=== PATIENT | female | born 1955 | race Caucasian/White ===

== ENCOUNTER → 2016-11-16 | Outpatient (CLI) | payer BC ==
[~2016-11-16] MED LIST: MECL1TAB42 PO; ONDA4TAB10 SL
--- NOTE | 2016-11-17 07:42 | MAMMOGRAPHY REPORT ---
BILATERAL DIGITAL SCREENING MAMMOGRAM TOMOSYNTHESIS WITH CAD: 11/16/2016 CLINICAL HISTORY: Routine screening. Patient has no complaints. TECHNIQUE: Breast tomosynthesis in addition to standard 2D mammography was performed. Current study was also evaluated with a Computer Aided Detection (CAD) system. COMPARISON: Comparison is made to exams dated: 11/10/2015 mammogram, 11/04/2014 mammogram, 10/24/2013 mammogram, 10/01/2012 mammogram - [facility], 03/26/2009, and 08/21/2008. BREAST COMPOSITION: The tissue of both breasts is heterogeneously dense, which may obscure small ma sses. FINDINGS: No suspicious masses, calcifications, or areas of architectural distortion are noted in e ither breast. There has been no significant interval change compared to prior exams. Focal asymmetr y in the left medial breast at approximately 9:00 is stable compared to multiple prior exams includi ng the 2007 exam. Bilateral benign-appearing calcifications are stable. IMPRESSION: ACR BI-RADS CATEGORY 2: BENIGN There is no mammographic evidence of malignancy. A 1 year screening mammogram is recommended. The p atient will receive written notification of the results. Approximately 10% of breast cancers are not detected with mammography. A negative mammographic repor t should not delay biopsy if a clinically suggestive mass is present. Cecy May M.D. ah/:11/16/2016 15:47:13 Overlay Plastician: Radha W[place])(M), [facility] letter sent: Normal 1/2 BI-RADS Code: ACR BI-RADS Category 2: Benign
== END | disposition home or self-care (01) ==
LOC: C.MAMM 15:14
PROVIDERS: ATTEND Obstetrics & Gynecology
DX: Z12.31 Encounter for screening mammogram for malignant neoplasm of breast (principal)

== ENCOUNTER 2017-02-17 07:12 | Emergency (ER) | payer BC ==
[~2017-02-17] VITALS: Ht 162.6 cm; Wt 55.7 kg
[2017-02-17 07:17] VITALS: TEMP 36.4; Ht 162.6 cm; Wt 55.7 kg
[2017-02-17] MEDS ORDERED: DIAZEPAM INJ 5 MG/ML 2 ML CARP IV STA (07:26)
[2017-02-17] MEDS ORDERED: SODIUM CHLORIDE 0.9% 1000ML 1,000 ML IV STA (07:26)
[2017-02-17] MEDS ORDERED: ONDANSETRON INJ 2 MG/ML 2 ML VIAL IV STA (07:26)
--- NOTE | 2017-02-17 07:36 | EMERGENCY ROOM VISIT NOTE ---
History First contact with patient: 07:19 Chief Complaint: DIZZY Stated Complaint: DIZZY,VERTIGO,NAUSEAUS History of Present Illness The patient is a 61 year old female who presents to the Emergency Room with complaints of dizziness. The patient states that yesterday morning she woke up and noticed his this. She describes it as a spinning sensation. She reports associated nausea. She states she has also had some head pressure but states it does not feel like a headache. The patient had a history of Mnire's in the . She had vertigo at that time. She states this feels different today. She denies any hearing loss or hearing decreased. This feels different than headaches she has had in the past. She denies any recent illness, earache , sore throat, cough, fever. She denies any pain in her chest or trouble breathing. She denies any abdominal pain, vomiting. She denies any numbness, tingling, weakness in the upper or lower extremities. Review of Systems A 10 system review of systems was completed with positives and pertinent negatives listed in the HPI. Past Medical/Surgical History Medical Problems: (1) Meniere's disease Social History Smoking Status: Never Smoker Housing Status: lives with family Current/Historical Medications Scheduled Ondasetron Odt (Zofran Odt), 4 MG SL Q6H Scheduled PRN Meclizine Hcl (Meclizine Hcl), 1 TAB PO TID PRN for Dizziness or Vertigo Allergies Coded Allergies: No Known Allergies (Unverified , 06/06/10) Physical Exam Vital Signs Date Time Temp Pulse Resp B/P (MAP) Pulse Ox O2 Delivery O2 Flow Rate FiO2 02/17/17 10:27 50 16 124/52 100 02/17/17 08:46 48 17 129/77 98 Room Air 57 145/69 53 127/62 02/17/17 08:10 45 18 123/61 96 Room Air 02/17/17 07:44 57 02/17/17 07:17 36.4 53 18 145/76 99 Room Air Physical Exam VITALS: Vitals are noted on the nurse's note and reviewed by myself. Vital signs stable. The patient is afebrile. She is not tachycardic, tachypneic or hypoxic. She is not hypotensive. GENERAL: This is a 61-year-old female, in no acute distress, nondiaphoretic, well-developed well-nourished. SKIN: The skin was without rashes, erythema, edema, or bruising. There is no tenting of the skin. Capillary reflex less than 2 seconds. HEAD: Normocephalic atraumatic. EARS: External auditory canals clear, tympanic membranes pearly nunez without erythema or effusion bilaterally. EYES: Pupils equal round and reactive to light and accommodation. Conjunctivae without injection, sclerae without icterus. Extraocular movements intact. There is no nystagmus. NOSE: Patent, turbinates without inflammation or discharge. MOUTH: Mucous membranes moist. Tonsils are not enlarged. Pharynx without erythema or exudate. Uvula midline. Airway patent. Tongue does not deviate. NECK: Supple without nuchal rigidity. Cervical spine is nontender. No JVD. HEART: Regular rate and rhythm without murmurs gallops or rubs. LUNGS: Clear to auscultation bilaterally without wheezes, rales or rhonchi. No retractions or accessory muscle use. ABDOMEN: Positive bowel sounds x 4. Soft, nontender, without masses or organomegaly. MUSCULOSKELETAL: No muscle atrophy, erythema, or edema noted. Full range of motion in all extremities. Strength 5/5 throughout. NEURO: Patient was alert and oriented to person place and time. Cranial nerves II through XII grossly intact. Negative pronator drift. Cacezn-rg-pyfb intact. Tyam-ok-yheb testing is intact. No focal neurological deficits. Medical Decision & Procedures ER Provider Diagnostic Interpretation: [~ rep ct add3]] CHEST ONE VIEW PORTABLE CLINICAL HISTORY: dizziness COMPARISON STUDY: No previous studies for comparison. FINDINGS: The cardiac and mediastinal contours are normal. There is no evidence of focal pulmonary consolidation. There is no evidence of failure. No pleural effusions are visualized.[ IMPRESSION: No active disease in the chest. CT HEAD WITHOUT CONTRAST (CT) CLINICAL HISTORY: dizziness NAUSEA COMPARISON STUDY: No previous studies for comparison. TECHNIQUE: Axial CT of the brain is performed from the vertex to the skull base. IV contrast was not administered for this examination. CT DOSE: 537.48 mGy.cm FINDINGS: No intra or extra-axial mass lesions are visualized. There is no CT evidence of acute cortical infarction. There is no evidence of midline shift. There is no acute hemorrhage. No calvarial fractures are visualized. There is no evidence of pathologic ventricular dilatation. There is no evidence of acute sinusitis IMPRESSION: No acute intracranial findings Laboratory Results 02/17/17 08:00 Red Blood Count 4.86, Mean Corpuscular Volume 91.6, Mean Corpuscular Hemoglobin 30.5, Mean Corpuscular Hemoglobin Concent 33.3, Mean Platelet Volume 9.7, Neutrophils (%) (Auto) 58.9, Lymphocytes (%) (Auto) 31.9, Monocytes (%) (Auto) 6.6, Eosinophils (%) (Auto) 2.0, Basophils (%) (Auto) 0.4, Neutrophils # (Auto) 2.67, Lymphocytes # (Auto) 1.45, Monocytes # (Auto) 0.30, Eosinophils # (Auto) 0.09, Basophils # (Auto) 0.02 02/17/17 08:00 Test 02/17/17 08:00 02/17/17 08:19 White Blood Count 4.54 K/uL (4.8-10.8) Red Blood Count 4.86 M/uL (4.2-5.4) Hemoglobin 14.8 g/dL (12.0-16.0) Hematocrit 44.5 % (37-47) Mean Corpuscular Volume 91.6 fL (80-100) Mean Corpuscular Hemoglobin 30.5 pg (25-34) Mean Corpuscular Hemoglobin Concent 33.3 g/dl (32-36) Platelet Count 207 K/uL (130-400) Mean Platelet Volume 9.7 fL (7.4-10.4) Neutrophils (%) (Auto) 58.9 % Lymphocytes (%) (Auto) 31.9 % Monocytes (%) (Auto) 6.6 % Eosinophils (%) (Auto) 2.0 % Basophils (%) (Auto) 0.4 % Neutrophils # (Auto) 2.67 K/uL (1.4-6.5) Lymphocytes # (Auto) 1.45 K/uL (1.2-3.4) Monocytes # (Auto) 0.30 K/uL (0.11-0.59) Eosinophils # (Auto) 0.09 K/uL (0-0.5) Basophils # (Auto) 0.02 K/uL (0-0.2) RDW Standard Deviation 41.8 fL (36.4-46.3) RDW Coefficient of Variation 12.4 % (11.5-14.5) Immature Granulocyte % (Auto) 0.2 % Immature Granulocyte # (Auto) 0.01 K/uL (0.00-0.02) Prothrombin Time 10.7 SECONDS (9.0-12.0) Prothromb Time International Ratio 1.0 (0.9-1.1) Activated Partial Thromboplast Time 25.6 SECONDS (21.0-31.0) Partial Thromboplastin Ratio 1.0 Anion Gap 7.0 mmol/L (3-11) Est Creatinine Clear Calc Drug Dose 55.5 ml/min Estimated GFR () 77.9 Estimated GFR (Non- 67.2 BUN/Creatinine Ratio 12.4 (10-20) Calcium Level 9.7 mg/dl (8.5-10.1) Magnesium Level 2.1 mg/dl (1.8-2.4) Total Bilirubin 1.1 mg/dl (0.2-1) Aspartate Amino Transf (AST/SGOT) 18 U/L (15-37) Alanine Aminotransferase (ALT/SGPT) 22 U/L (12-78) Alkaline Phosphatase 66 U/L (45-117) Troponin I < 0.015 ng/ml (0-0.045) Total Protein 7.4 gm/dl (6.4-8.2) Albumin 4.2 gm/dl (3.4-5.0) Globulin 3.2 gm/dl (2.5-4.0) Albumin/Globulin Ratio 1.3 (0.9-2) Thyroid Stimulating Hormone (TSH) 1.070 uIu/ml (0.300-4.500) Urine Color YELLOW Urine Appearance CLEAR (CLEAR) Urine pH 6.5 (4.5-7.5) Urine Specific [place] 1.008 (1.000-1.030) Urine Protein NEG (NEG) Urine Glucose (UA) NEG (NEG) Urine Ketones NEG (NEG) Urine Occult Blood NEG (NEG) Urine Nitrite NEG (NEG) Urine Bilirubin NEG (NEG) Urine Urobilinogen NEG (NEG) Urine Leukocyte Esterase MODERATE (NEG) Urine WBC (Auto) 1-5 /hpf (0-5) Urine RBC (Auto) 0-4 /hpf (0-4) Urine Hyaline Casts (Auto) 0 /lpf (0-5) Urine Epithelial Cells (Auto) 10-20 /lpf (0-5) Urine Bacteria (Auto) NEG (NEG) Medications Administered Medications (Trade) Dose Ordered Sig/Trixie Route Start Time Stop Time Status Last Admin Dose Admin Sodium Chloride 1,000 ml @ 999 mls/hr Q1H1M STAT IV 02/17/17 07:26 02/17/17 08:26 DC 02/17/17 07:54 999 MLS/HR Ondansetron HCl (Zofran Inj) 4 mg NOW STAT IV 02/17/17 07:26 02/17/17 07:28 DC 02/17/17 07:54 4 MG Diazepam (Valium Inj) 2.5 mg NOW STAT IV 02/17/17 07:26 02/17/17 07:28 DC 02/17/17 07:55 2.5 MG Meclizine HCl (Antivert Tab) 25 mg NOW STAT PO 02/17/17 09:13 02/17/17 09:14 DC 02/17/17 09:24 25 MG Procedure The patient was monitored on a firebreak cutter. She maintained a sinus bradycardia without ectopy. On ambulatory trial, the patient did have appropriate heart rate response with heart rate around 70 bpm. ECG Indication: nausea Rate (beats per minute): 46 Rhythm: sinus bradycardia Findings: no acute ischemic change Comparison ECG Date: no prior available ED Course The patient was seen and examined. Previous visits were reviewed. She does not have a fever or leukocytosis. She does not have any significant electrolyte abnormality. TSH is within normal limits. Troponin is not elevated. CT scan of the brain does not reveal any acute abnormality Chest x-ray was negative The patient was hydrated with normal saline She was given 4 mg IV Zofran and 2.5 mg IV Valium with mild improvement in her symptoms She was given 25 mg oral meclizine and was feeling well enough to be discharged home The patient presents to the emergency department with symptoms of vertigo. The patient has a normal neurologic examination. CT of the brain does not reveal any abnormality. The patient was feeling better after Valium, fluids, Zofran and meclizine. The patient should follow with her family doctor next week. The patient was noted to have a sinus bradycardia. She states that she is a very active and often has a low heart rate. When the patient was ambulated, she had an appropriate response of her heart rate. She should return to the ER with any worsening symptoms. The case was discussed with Dr. Christine who agrees with the assessment and treatment plan Medical Decision DIFFERENTIAL DIAGNOSIS: Aortic dissection, myocarditis, pericarditis, cervical disc disease, costochondritis, herpes zoster, rib fracture, pleuritis, pneumonia , pulmonary embolus, tension pneumothorax, anxiety disorder, somatoform disorder , choledocholithiasis, status, esophagitis, esophageal spasm, esophageal reflux , esophageal rupture, pancreatitis, peptic ulcer disease, cardiac ischemia, ST elevation PA, acute coronary syndrome, arrhythmia, coronary artery vasospasm. vavular heart disease, coronary artery disease, TIA, CVA, intracranial bleeding , vertigo, among others. Impression Primary Impression: Vertigo Additional Impression: Dizziness Departure Information Dispostion Home / Self-Care Condition GOOD Prescriptions Ondasetron Odt (ZOFRAN ODT) 4 Mg Tab 4 MG SL Q6H for Nausea, #20 TAB Prov: Therese Hernandez PA-C 02/17/17 Meclizine Hcl (MECLIZINE HCL) 25 Mg Tab 1 TAB PO TID Y for Dizziness or Vertigo for 10 Days, #30 TAB Prov: Therese Hernandez PA-C 02/17/17 Referrals Alden Marin M.D.(CINTIA) (PCP) Patient Instructions ED [facility] Vertigo, [facility] Additional Instructions Meclizine as prescribed, as needed for dizziness Zofran as prescribed, as needed for nausea and vomiting Contact your family doctor on Sunday to schedule a follow-up appointment next week for recheck Return with any worsening symptoms, numbness, tingling, weakness in the extremities, chest pain, trouble breathing, headache Problem Qualifiers
--- NOTE | 2017-02-17 07:43 | DIAGNOSTIC IMAGING REPORT ---
CHEST ONE VIEW PORTABLE CLINICAL HISTORY: dizziness COMPARISON STUDY: No previous studies for comparison. FINDINGS: The cardiac and mediastinal contours are normal. There is no evidence of focal pulmonary consolidation. There is no evidence of failure. No pleural effusions are visualized.[ IMPRESSION: No active disease in the chest. Electronically signed by: Maynor Carlson M.D. 02/17/2017 7:42 AM Dictated Date/Time: 02/17/2017 7:42 AM
[2017-02-17 08:22] LABS: BASO % 0.4 %; BASO ABS # 0.02 K/uL (0-0.2); COMPLETE YES; HEMATOCRIT 44.5 % (37-47); IG% 0.2 %; LYMPH % 31.9 %; LYMPH ABS # 1.45 K/uL (1.2-3.4); MEAN CELL VOLUME 91.6 fL (80-100); MEAN CORPUSCULAR HEMOGLOBIN 30.5 pg (25-34); MEAN CORPUSCULAR HGB CONC 33.3 g/dl (32-36); MEAN PLATELET VOLUME 9.7 fL (7.4-10.4); MONO % 6.6 %; NEUT % 58.9 %; PLATELET COUNT 207 K/uL (130-400); RED BLOOD COUNT 4.86 M/uL (4.2-5.4); WHITE BLOOD COUNT 4.54 K/uL (4.8-10.8)
--- NOTE | 2017-02-17 08:27 | DIAGNOSTIC IMAGING REPORT ---
CT HEAD WITHOUT CONTRAST (CT) CLINICAL HISTORY: dizziness NAUSEA COMPARISON STUDY: No previous studies for comparison. TECHNIQUE: Axial CT of the brain is performed from the vertex to the skull base. IV contrast was not administered for this examination. CT DOSE: 537.48 mGy.cm FINDINGS: No intra or extra-axial mass lesions are visualized. There is no CT evidence of acute cortical infarction. There is no evidence of midline shift. There is no acute hemorrhage. No calvarial fractures are visualized. There is no evidence of pathologic ventricular dilatation. There is no evidence of acute sinusitis IMPRESSION: No acute intracranial findings Electronically signed by: Maynor Carlson M.D. 02/17/2017 8:26 AM Dictated Date/Time: 02/17/2017 8:25 AM
[2017-02-17 08:31] LABS: PROTHROMBIN TIME (PATIENT) 10.7 SECONDS (9.0-12.0)
[2017-02-17 08:32] LABS: ALT/SGPT 22 U/L (12-78); BLOOD UREA NITROGEN 11 mg/dl (7-18); BUN/CREATININE RATIO 12.4 (10-20); CALCIUM 9.7 mg/dl (8.5-10.1); CARBON DIOXIDE 26 mmol/L (21-32); CHLORIDE 108 mmol/L (98-107); CREATININE 0.92 mg/dl (0.60-1.20); GLUCOSE 90 mg/dl (70-99); MAGNESIUM 2.1 mg/dl (1.8-2.4); POTASSIUM 4.1 mmol/L (3.5-5.1); SODIUM 141 mmol/L (136-145)
[2017-02-17 08:38] LABS: URINE APPEARANCE CLEAR (CLEAR); URINE BILIRUBIN NEG (NEG); URINE COLOR YELLOW; URINE NITRITE NEG (NEG); URINE PH 6.5 (4.5-7.5); URINE SPECIFIC GRAVITY 1.008 (1.000-1.030); UROBILINOGEN NEG (NEG); ZZUR CULT IF INDIC CLEAN CATCH NO
[2017-02-17 08:41] LABS: MANUAL MICROSCOPIC REQUIRED? NO; REVIEW REQ? NO
[2017-02-17 08:43] LABS: ALB/GLOB RATIO 1.3 (0.9-2); ALKALINE PHOSPHATASE 66 U/L (45-117); AST/SGOT 18 U/L (15-37)
[2017-02-17] MEDS ORDERED: MECLIZINE HCL 25 MG TAB PO STA (09:13)
[2017-02-17] MEDS ORDERED: ONDA4TAB10 SL (09:56)
[2017-02-17] MEDS ORDERED: MECL1TAB42 PO (09:56)
[2017-02-17 10:27] VITALS: BP 124/52; PULSE 50; O2SAT 100
== END 2017-02-17 10:30 | disposition home or self-care (01) ==
LOC: C.EDB 07:14 → C.EDA 10:30
DX: R42 Dizziness and giddiness (principal)

== ENCOUNTER → 2017-04-19 | Outpatient (CLI) | payer BC ==
[~2017-04-19] MED LIST changes: -MECL1TAB42 PO
== END | disposition home or self-care (01) ==
LOC: C.PATHSPEC 11:10
PROVIDERS: ATTEND Obstetrics & Gynecology
DX: N84.1 Polyp of cervix uteri (principal)

== ENCOUNTER → 2017-11-22 | Outpatient (CLI) | payer OTHER ==
--- NOTE | 2017-11-23 07:46 | MAMMOGRAPHY REPORT ---
BILATERAL DIGITAL SCREENING MAMMOGRAM TOMOSYNTHESIS WITH CAD: 11/22/2017 CLINICAL HISTORY: Routine screening. Patient has no complaints. TECHNIQUE: Breast tomosynthesis in addition to standard 2D mammography was performed. Current study was also evaluated with a Computer Aided Detection (CAD) system. COMPARISON: Comparison is made to exams dated: 11/16/2016 mammogram, 11/10/2015 mammogram, 11/04/2014 ma mmogram, 10/24/2013 mammogram, 10/01/2012 mammogram - [facility], and 03/26/2009. BREAST COMPOSITION: The tissue of both breasts is heterogeneously dense, which may obscure small mas ses. FINDINGS: No suspicious masses, calcifications, or areas of architectural distortion are noted in ei ther breast. There has been no significant interval change compared to prior exams. Bilateral asymme tries and scattered bilateral benign-appearing calcifications are not significantly changed. IMPRESSION: ACR BI-RADS CATEGORY 2: BENIGN There is no mammographic evidence of malignancy. A 1 year screening mammogram is recommended. The pa tient will receive written notification of the results. Approximately 10% of breast cancers are not detected with mammography. A negative mammographic report should not delay biopsy if a clinically suggestive mass is present. Cecy May M.D. ah/:11/22/2017 16:46:48 Computing Systems Mechanic: Cat [place])(M), [facility] letter sent: Normal 1/2 BI-RADS Code: ACR BI-RADS Category 2: Benign
== END | disposition home or self-care (01) ==
LOC: C.MAMM 15:45
PROVIDERS: ATTEND Obstetrics & Gynecology
DX: Z12.31 Encounter for screening mammogram for malignant neoplasm of breast (principal)

== ENCOUNTER 2017-12-24 18:01 | Emergency (ER) | payer OTHER ==
[~2017-12-24] VITALS: Ht 162.6 cm; Wt 55.2 kg
[2017-12-24 18:03] VITALS: TEMP 36.6; Ht 162.6 cm; Wt 55.2 kg
[2017-12-24] MEDS ORDERED: METOCLOPRAMIDE HCL INJ 5 MG/ML 2 ML VIAL IV STA (18:09)
[2017-12-24] MEDS ORDERED: SODIUM CHLORIDE 0.9% 1000ML 2,000 ML IV STA (18:09)
[2017-12-24] MEDS ORDERED: DiphenhydrAMINE HCL 50 MG/ML VIAL IV STA (18:09)
--- NOTE | 2017-12-24 18:49 | DIAGNOSTIC IMAGING REPORT ---
HEAD WITHOUT CONTRAST (CT) CLINICAL HISTORY: 62 years-old Female presenting with ghotra. TECHNIQUE: Multidetector CT imaging of the head was performed without the use of intravenous contrast. IV contrast: None. A dose lowering technique was used consistent with the principles of ALARA (as low as reasonably achievable). COMPARISON: 02/17/2018. CT DOSE (mGy.cm): The estimated cumulative dose is 679.75 mGycm. FINDINGS: Coin Machine Assembler topogram: Unremarkable. Significance subarachnoid hemorrhage with a focal 2.4 cm hematoma near the right vertex (series 2 image 23. Subarachnoid hemorrhage is noted at the basal cisterns bilaterally and bilateral convexities though most prominently along the right cerebrum. Subarachnoid hemorrhage the prepontine cistern. Trace intraventricular hemorrhage may be present in the fourth ventricle. Ventricles and sulci normal in size. Brain parenchyma normal in appearance with preserved nunez-white differentiation. No mass effect or midline shift. No acute territorial infarct. Paranasal sinuses and mastoid air cells clear. Calvarium intact. IMPRESSION: 1. Extensive subarachnoid hemorrhage throughout the basal cisterns and extensively over the right cerebrum. A focal hematoma is evident in the right vertex. 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 Follow-up CTA recommended. These findings were discussed with Dr. Marin by Dr. Stapleton on 12/24/2017 6:43 PM. Electronically signed by: Agustín Stapleton M.D. 12/24/2017 6:48 PM Dictated Date/Time: 12/24/2017 6:41 PM
[2017-12-24] MEDS ORDERED: OPTIRAY 320 IV PRN (19:00)
[2017-12-24] MEDS ORDERED: DEXAMETHASONE **PF** INJ 10 MG/ML VIAL IV ONE (19:00)
--- NOTE | 2017-12-24 19:02 | EMERGENCY ROOM VISIT NOTE ---
History Report prepared by [place]: Gio Sandoval Under the Supervision of: Dr. Nino Marin M.D. First contact with patient: 18:07 Chief Complaint: HEADACHE Stated Complaint: SEVERE,SUDDEN HEADACHE History of Present Illness The patient is a 62 year old female who presents to the Emergency Room with complaints of a persistent headache that began earlier today, a few hours ago. The patient states that she was on day 4 of a 4-day hiking trip this morning. She had been feeling well up until her headache started today. The first symptom she noticed was pain in the back of her neck. She thought this pain was likely from carrying a backpack up the hill on the hike. She states that she was attempting to cross a stream when she had the headache onset suddenly. She describes the onset as an "explosion." She describes her headache as "excruciating pain," that felt as though her head "was exploding." She estimates this onset occurred at 1400, 4 hours and 15 minutes ago. She rates the severity of her current pain as a 7/10 in severity, which has seemed to improve since it began. She took some Advil and her symptoms improved shortly thereafter. She denies any associated dizziness, chest pain, or shortness of breath. After the headache onset she did feel subjectively feverish, and her friends cooled her down with cool towels. She has also been vomiting since onset. She had felt chilled since. Source of History: patient Onset: 4 hours ago Position: head Symptom Intensity: 7/10 currently Quality: other (Head exploding) Timing: other (persistent) Modifying Factors (Relieving): tylenol Associated Symptoms: + neck pain, No chest pain, No SOB Review of Systems See HPI for pertinent positives and negatives. A total of ten systems were reviewed and were otherwise negative. Past Medical & Surgical Medical Problems: (1) Meniere's disease Social History Smoking Status: Never Smoker Drug Use: none Housing Status: lives with family Current/Historical Medications No Active Prescriptions or Reported Meds Allergies Coded Allergies: Iodinated Diagnostic Agents (Unverified Allergy, Mild, POSSIBLE - FATHER TOLD HER SHE WAS, 12/24/17) Physical Exam Vital Signs Date Time Temp Pulse Resp B/P (MAP) Pulse Ox O2 Delivery O2 Flow Rate FiO2 12/24/17 19:35 63 20 113/73 98 Room Air 12/24/17 19:12 67 5/14/18 18:03 36.6 67 18 146/66 100 Room Air Physical Exam GENERAL: Awake, alert, fatigued-appearing, in no distress HENT: Normocephalic, atraumatic. Mucous Membranes are dry. EYES: Normal conjunctiva. Sclera non-icteric. NECK: Supple. No nuchal rigidity. FROM. No JVD. RESPIRATORY: Clear to auscultation. CARDIAC: Regular rate, normal rhythm. Extremities warm and well perfused. Pulses equal. ABDOMEN: Soft, non-distended. No tenderness to palpation. No rebound or guarding. No masses. RECTAL: Deferred. MUSCULOSKELETAL: Chest examination reveals no tenderness. The back is symmetrical on inspection without obvious abnormality. There is no CVA tenderness to palpation. No joint edema. LOWER EXTREMITIES: Calves are equal size bilaterally and non-tender. No edema. No discoloration. NEURO: Normal sensorium. No sensory or motor deficits noted. SKIN: No rash or jaundice noted. normal cerebellar function with kyhazu-bj-olaw, alternating palms, fspy-[id number] Medical Decision & Procedures ER Provider Diagnostic Interpretation: Radiology results as stated below per my review and radiologist interpretation: HEAD WITHOUT CONTRAST (CT) CLINICAL HISTORY: 62 years-old Female presenting with ghotra. TECHNIQUE: Multidetector CT imaging of the head was performed without the use of intravenous contrast. IV contrast: None. A dose lowering technique was used consistent with the principles of ALARA (as low as reasonably achievable). COMPARISON: 02/17/2018. CT DOSE (mGy.cm): The estimated cumulative dose is 679.75 mGycm. FINDINGS: Break Out Worker topogram: Unremarkable. Significance subarachnoid hemorrhage with a focal 2.4 cm hematoma near the right vertex (series 2 image 23. Subarachnoid hemorrhage is noted at the basal cisterns bilaterally and bilateral convexities though most prominently along the right cerebrum. Subarachnoid hemorrhage the prepontine cistern. Trace intraventricular hemorrhage may be present in the fourth ventricle. Ventricles and sulci normal in size. Brain parenchyma normal in appearance with preserved nunez-white differentiation. No mass effect or midline shift. No acute territorial infarct. Paranasal sinuses and mastoid air cells clear. Calvarium intact. IMPRESSION: 1. Extensive subarachnoid hemorrhage throughout the basal cisterns and extensively over the right cerebrum. A focal hematoma is evident in the right vertex. 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 Follow-up CTA recommended. These findings were discussed with Dr. Marin by Dr. Stapleton on 12/24/2017 6:43 PM. Electronically signed by: Agustín Stapleton M.D. 12/24/2017 6:48 PM Dictated Date/Time: 12/24/2017 6:41 PM Laboratory Results 12/24/17 18:45 Red Blood Count 4.30, Mean Corpuscular Volume 90.2, Mean Corpuscular Hemoglobin 30.9, Mean Corpuscular Hemoglobin Concent 34.3, Mean Platelet Volume 9.5, Neutrophils (%) (Auto) 90.6, Lymphocytes (%) (Auto) 6.1, Monocytes (%) (Auto) 3.0, Eosinophils (%) (Auto) 0.0, Basophils (%) (Auto) 0.1, Neutrophils # (Auto) 8.16, Lymphocytes # (Auto) 0.55, Monocytes # (Auto) 0.27, Eosinophils # (Auto) 0.00, Basophils # (Auto) 0.01 12/24/17 18:45 Test 12/24/17 18:45 White Blood Count 9.01 K/uL (4.8-10.8) Red Blood Count 4.30 M/uL (4.2-5.4) Hemoglobin 13.3 g/dL (12.0-16.0) Hematocrit 38.8 % (37-47) Mean Corpuscular Volume 90.2 fL (80-100) Mean Corpuscular Hemoglobin 30.9 pg (25-34) Mean Corpuscular Hemoglobin Concent 34.3 g/dl (32-36) Platelet Count 179 K/uL (130-400) Mean Platelet Volume 9.5 fL (7.4-10.4) Neutrophils (%) (Auto) 90.6 % Lymphocytes (%) (Auto) 6.1 % Monocytes (%) (Auto) 3.0 % Eosinophils (%) (Auto) 0.0 % Basophils (%) (Auto) 0.1 % Neutrophils # (Auto) 8.16 K/uL (1.4-6.5) Lymphocytes # (Auto) 0.55 K/uL (1.2-3.4) Monocytes # (Auto) 0.27 K/uL (0.11-0.59) Eosinophils # (Auto) 0.00 K/uL (0-0.5) Basophils # (Auto) 0.01 K/uL (0-0.2) RDW Standard Deviation 41.3 fL (36.4-46.3) RDW Coefficient of Variation 12.6 % (11.5-14.5) Immature Granulocyte % (Auto) 0.2 % Immature Granulocyte # (Auto) 0.02 K/uL (0.00-0.02) Prothrombin Time 11.0 SECONDS (9.0-12.0) Prothromb Time International Ratio 1.0 (0.9-1.1) Activated Partial Thromboplast Time 22.5 SECONDS (21.0-31.0) Partial Thromboplastin Ratio 0.9 Anion Gap 9.0 mmol/L (3-11) Est Creatinine Clear Calc Drug Dose 57.9 ml/min Estimated GFR () 82.8 Estimated GFR (Non- 71.4 BUN/Creatinine Ratio 19.8 (10-20) Calcium Level 9.0 mg/dl (8.5-10.1) Magnesium Level 2.0 mg/dl (1.8-2.4) Total Bilirubin 1.2 mg/dl (0.2-1) Direct Bilirubin 0.2 mg/dl (0-0.2) Aspartate Amino Transf (AST/SGOT) 23 U/L (15-37) Alanine Aminotransferase (ALT/SGPT) 24 U/L (12-78) Alkaline Phosphatase 71 U/L (45-117) Troponin I < 0.015 ng/ml (0-0.045) Total Protein 7.6 gm/dl (6.4-8.2) Albumin 4.2 gm/dl (3.4-5.0) Lipase 167 U/L (73-393) Laboratory results reviewed by me Medications Administered Medications (Trade) Dose Ordered Sig/Trixie Route Start Time Stop Time Status Last Admin Dose Admin Sodium Chloride 2,000 ml @ 999 mls/hr Q2H1M STAT IV 12/24/17 18:09 12/24/17 20:09 DC 12/24/17 18:51 999 MLS/HR Metoclopramide HCl (Reglan Inj) 10 mg NOW STAT IV 12/24/17 18:09 12/24/17 18:19 DC 12/24/17 18:51 10 MG Diphenhydramine HCl (Benadryl Inj) 25 mg NOW STAT IV 12/24/17 18:09 12/24/17 18:19 DC 12/24/17 18:51 25 MG Dexamethasone Sodium Phosphate (Dexamethasone Inj Pf) 10 mg NOW ONCE IV 12/24/17 19:00 12/24/17 19:01 DC 12/24/17 19:04 10 MG ECG Per My Interpretation Indication: vomiting (with headache ) Rate (beats per minute): 72 Rhythm: normal sinus Findings: other (Normal [place], no ALIA/STD) ED Course 1807: The patient was evaluated in room B11B. A complete history and physical exam was performed. 1808: Ordered Benadryl 25 mg IV, Reglan 10 mg IV, Sodium Chloride 2000 mL @ 999 mL/hr IV. 1849: I checked on the patient at this time. I updated her. She is doing fine. 1850: I paged for the [facility] Hospitalist at this time. 1899: Ordered Dexamethasone 10 mg IV. 1918: I discussed the case with Dr. Dorsey - [facility] Distribution Accounting Clerk. Dr. Dorsey will accept the patient for transfer to the [facility]. Medical Decision I reviewed the patient's past medical history, medications, and the nursing notes as described above. Differential diagnosis: Etiologies such as migraine headache, meningitis, sinusitis, CO exposure, ICH, SAH, infection, tumor, headache, sinus thrombosis, arterial dissection, as well as others were entertained. The patient is a 62-year-old woman present emergency department with sudden onset posterior headache with associated nausea and vomiting between 1300 and 1400 today when she was finalizing a four-day hiking trip with friends. On arrival the patient is fatigued appearing but no acute distress, afebrile stable vital signs. She is neuro intact including . She does appear clinically dry. CT results demonstrate subarachnoid hemorrhage with which I discussed with radiology. I did show extensive SAH throughout the basal cisterns and over the right cerebellum. Focal hematoma is evident in the right vertex however given there is no history of trauma likely suspicious for right-sided aneurysm. Process for emergent transfer to tertiary care center initiated, in the meantime we will proceed with CTA for further characterization. Discussed findings with the patient and she prefers to go to [facility] given her PCP is within the [facility] system. Additionally she reports that she has never had a allergic reaction to contrast rather her father had a history of an allergy and so told her to always say she was allergic. Thus will proceed with contrast study. Patient pretreated with dexamethasone given radiology protocols given listed allergy. Otherwise, the patient continues to mentate normally and is neuro intact. Case was discussed with [facility] center and ICU transfer and pumphouse operator chief Dr. Dorsey, who accepts the patient for direct admission/transfer. Neurosurgery and neuro IR were also paged but not available at the time of our call. Otherwise, the patient's blood pressure is with a systolic in the 140s. Will maintain a goal for systolic blood pressure less than 160. Patient was transferred via [facility]. 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 Lead Miner to forward report to [facility] admitting provider. Medication Reconcilliation Current Medication List: was personally reviewed by me Blood Pressure Screening Patient's blood pressure: Elevated blood pressure Blood pressure disposition: Elevated BP felt to be situational Consults Time Called: 1914 Consulting Phys[facility] Returned Call: 1918 I discussed the case with Dr. Dorsey - [facility] Distribution Accounting Clerk. Dr. Dorsey will accept the patient for transfer to the [facility]. Impression Primary Impression: Subarachnoid hemorrhage Critical Care I have personally spent greater than 35 minutes of critical care time in the direct management of this patient. This includes bedside care, interpretation of diagnostic studies, and testing, discussion with consultants, patient, and family members, and other required patient management activities. This 35 minutes is in excess of all separately billable procedures. Scribe Attestation The scribe's documentation has been prepared under my direction and personally reviewed by me in its entirety. I confirm that the note above accurately reflects all work, treatment, procedures, and medical decision making performed by me. Departure Information Dispostion Transfer Acute Care Facility ([facility]) Prescriptions No Active Prescriptions or Reported Meds Referrals Alden Marin M.D.YUE) (PCP) Patient Instructions [facility]
[2017-12-24 19:05] LABS: BASO % 0.1 %; BASO ABS # 0.01 K/uL (0-0.2); HEMATOCRIT 38.8 % (37-47); HEMOGLOBIN 13.3 g/dL (12.0-16.0); IG# 0.02 K/uL (0.00-0.02); LYMPH % 6.1 %; LYMPH ABS # 0.55 K/uL (1.2-3.4); MEAN CELL VOLUME 90.2 fL (80-100); MEAN CORPUSCULAR HEMOGLOBIN 30.9 pg (25-34); MEAN CORPUSCULAR HGB CONC 34.3 g/dl (32-36); MEAN PLATELET VOLUME 9.5 fL (7.4-10.4); MONO ABS # 0.27 K/uL (0.11-0.59); NEUT % 90.6 %; NEUT ABS # 8.16 K/uL (1.4-6.5); PLATELET COUNT 179 K/uL (130-400); RED CELL DISTRIBUTION WIDTH CV 12.6 % (11.5-14.5); RED CELL DISTRIBUTION WIDTH SD 41.3 fL (36.4-46.3); WHITE BLOOD COUNT 9.01 K/uL (4.8-10.8)
[2017-12-24 19:32] LABS: ALBUMIN 4.2 gm/dl (3.4-5.0); CREATININE 0.87 mg/dl (0.60-1.20); POTASSIUM 3.7 mmol/L (3.5-5.1)
[2017-12-24 19:35] VITALS: BP 113/73; PULSE 63; O2SAT 98
[2017-12-24 19:38] LABS: TOTAL PROTEIN 7.6 gm/dl (6.4-8.2)
[2017-12-24 19:43] LABS: PTT PATIENT 22.5 SECONDS (21.0-31.0)
--- NOTE | 2017-12-24 20:02 | DIAGNOSTIC IMAGING REPORT ---
HEAD ANGIO WITH CONTRAST CLINICAL HISTORY: 62 years-old Female presenting with subarachnoid hemorrhage. TECHNIQUE: Multidetector CT angiography of the head was performed after the administration of intravenous contrast. 3-D volumetric and/or maximum intensity projection (MIP) images were subsequently reconstructed for review. IV contrast: 120 mL of Optiray 320. A dose lowering technique was used consistent with the principles of ALARA (as low as reasonably achievable). COMPARISON: Noncontrast CT head performed earlier the same day. CT DOSE (mGy.cm): The estimated cumulative dose is 369.74 inclusive of the CTA neck. FINDINGS: Casing Crew topogram: Unremarkable. Anterior circulation: Atherosclerosis of the internal carotid arteries without significant narrowing. Intracranial portions of the internal carotid arteries patent to the level of the termini. 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 The A2 segment of the left anterior cerebral artery is performed from the anterior communicating artery. Aneurysmal dilatation of one of the M2 branch origins of the left middle cerebral artery measuring 3 mm. Posterior circulation: Codominant vertebral arteries. Intradural portions of the vertebral arteries patent. Posterior inferior cerebellar arteries patent. Basilar artery patent. Anterior inferior cerebellar arteries poorly visualized. Superior cerebellar arteries patent bilaterally. Left posterior cerebral artery patent. origin of the right posterior cerebral artery. Aplastic or hypoplastic left posterior communicating artery. Dural venous sinuses: Patent. Other: Allowing for the phase of contrast, brain parenchyma within normal limits. IMPRESSION: 1. 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 This is the suspected etiology of the subarachnoid hemorrhage. 2. 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 3. Anatomic variants as above. Electronically signed by: Agustín Stapleton M.D. 12/24/2017 8:01 PM Dictated Date/Time: 12/24/2017 7:52 PM
--- NOTE | 2017-12-24 20:06 | DIAGNOSTIC IMAGING REPORT ---
NECK ANGIO WITH CONTRAST CLINICAL HISTORY: 62 years-old Female presenting with subarachnoid hemorrhage. TECHNIQUE: Multidetector CT angiography of the neck was performed after the administration of intravenous contrast. 3-D volumetric and/or maximum intensity projection (MIP) images were subsequently reconstructed for review. IV contrast: 120 mL of Optiray 320. A dose lowering technique was used consistent with the principles of ALARA (as low as reasonably achievable). Stenosis measurements were based on NASCET-like criteria. COMPARISON: None. CT DOSE (mGy.cm): The estimated cumulative dose is 369.74 mGy.cm. FINDINGS: Music Video Producer topogram: Unremarkable. Aortic arch: Incompletely visualization of the aortic arch and origins of the major branch vessels. Innominate artery: Patent. Right common carotid artery: Patent. Right internal and external carotid arteries: Right atherosclerosis of the right carotid bifurcation though there is no significant narrowing of the origin of the right internal carotid artery. The right external carotid artery origin is narrowed by less than 50%. The remaining courses of the right internal and external carotid arteries are widely patent. Left common carotid artery: Patent. Left internal and external carotid arteries: Similarly, atherosclerosis of the left carotid bifurcation, however, no narrowing of the origins of the left internal or external carotid arteries. Remainder of the courses of the internal and external carotid arteries widely patent. Left subclavian artery: Patent. Vertebral arteries: Codominant vertebral arteries. Origins and courses of the bilateral vertebral arteries patent. Other: Please see separately dictated CTA of the head for intracranial findings. Soft tissues of the neck normal allowing for the phase of contrast. Degenerative changes of the cervical spine. Pleural parenchymal scarring at the lung apices. IMPRESSION: 1. No evidence of dissection, focal vessel occlusion, or significant stenosis of the cervical arteries. Electronically signed by: Agustín Stapleton M.D. 12/24/2017 8:05 PM Dictated Date/Time: 12/24/2017 8:02 PM
== END 2017-12-24 19:56 | disposition short-term general hospital (02) ==
LOC: C.EDB 18:02
DX: I60.9 Nontraumatic subarachnoid hemorrhage, unspecified (principal); H81.09 Meniere's disease, unspecified ear; Z91.041 Radiographic dye allergy status